=== PATIENT | female | born 1985 | race African-American/Black ===

== ENCOUNTER 2016-07-13 13:27 | Emergency (ER) | payer OTHER ==
[~2016-07-13] VITALS: Ht 157.5 cm; Wt 81.8 kg
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
[2016-07-13 13:37] VITALS: BP 138/69; PULSE 91; O2SAT 100
[2016-07-13] MEDS ORDERED: HYDROmorphone 1 mg/mL Inj IM ONE (13:40)
[2016-07-13] MEDS ORDERED: 0.9% Sodium Chloride 1,000 ML IV ONE (13:40)
[2016-07-13] MEDS ORDERED: Ondansetron 2 mg/mL 2 mL Inj IVPUSH PRN (13:40)
[2016-07-13] MEDS ORDERED: HYDROmorphone 0.5 mg/0.5 mL iSecure Syringe IVPUSH PRN (13:40)
[2016-07-13] MEDS ORDERED: Ketamine 100 mg/mL 5 mL Inj IM ONE (14:20)
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
[2016-07-13 15:17] VITALS: BP 149/83; PULSE 87; RESP 16; O2SAT 99
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
[2016-07-13 17:37] LABS: APPEARANCE,URINE TURBID (CLEAR,HAZY); COLOR,URINE BLOODY (YELLOW); OCCULT BLOOD,URINE LARGE (NEGATIVE); PH,URINE 6.5 (5.0-8.0); UROBILINOGEN,URINE NORMAL (NORMAL)
[2016-07-13] MEDS ORDERED: HYDR-4003 PO (17:50)
[2016-07-13] MEDS ORDERED: IBUP800T28 PO (17:50)
[2016-07-13 18:34] VITALS: BP 152/78; PULSE 91; RESP 18; O2SAT 100
== END 2016-07-13 18:36 | disposition home or self-care (01) ==
LOC: SED 13:27
DX: S70.01XA Contusion of right hip, initial encounter (principal); S70.11XA Contusion of right thigh, initial encounter; V43.52XA Car driver injured in collision with other type car in traffic accident, initial encounter; Y93.89 Activity, other specified; Y92.410 Unspecified street and highway as the place of occurrence of the external cause; Y99.9 Unspecified external cause status; Z86.69 Personal history of other diseases of the nervous system and sense organs
CPT/HCPCS: 70450; 72125; 73501; 73551; 81001; 81002; 81025; 82075; 96372; 99285; J1170; J1885